=== PATIENT | male | born 1965 | race Two or more races ===

== ENCOUNTER 2019-09-11 08:25 | Day surgery (SDC) | payer BC ==
[2019-09-10 12:18] VITALS: BMI 30.1
[2019-09-11 10:19] VITALS: TEMP 97.5
[2019-09-11 10:50] VITALS: BP 134/70; PULSE 98
== END 2019-09-11 11:00 | disposition home or self-care (01) ==
LOC: JASU-ENDO 08:25
PROVIDERS: ATTEND Internal Medicine Gastroenterology
PROC: 0DJD8ZZ Inspection of Lower Intestinal Tract, Via Natural or Artificial Opening Endoscopic (ICD-10-PCS; principal; 2019-09-11 10:15)
DX: Z12.11 Encounter for screening for malignant neoplasm of colon (principal); Z86.010 Personal history of colon polyps

== ENCOUNTER 2021-03-28 04:42 | Day surgery (SDC) | payer BC ==
[2021-03-24 11:04] VITALS: BMI 29.2
[2021-03-28] MEDS ORDERED: MIDAZOLAM HCL 2 MG/2 ML SINGLE DOSE VIAL ONE ×2 (14:11)
[2021-03-28 16:13] VITALS: BP 137/80; PULSE 55; TEMP 97.2
== END 2021-03-28 16:30 | disposition home or self-care (01) ==
LOC: JASU-SURG 04:42
PROVIDERS: ATTEND Urology
PROC: 0TF3XZZ Fragmentation in Right Kidney Pelvis, External Approach (ICD-10-PCS; principal; 2021-03-28 14:00)
DX: N20.0 Calculus of kidney (principal)